=== PATIENT | female | born 1965 | race Caucasian/White ===

== ENCOUNTER → 2017-06-09 | Outpatient (CLI) | payer BC, OTHER ==
--- NOTE | 2017-06-09 15:54 | XR ---
EXAMINATION TYPE: XR chest 2V DATE OF EXAM: 06/09/2017 COMPARISON: 12/13/12 HISTORY: Chest pain TECHNIQUE: Frontal and lateral views of the chest are obtained. FINDINGS: There is no focal air space opacity. No evidence for pneumothorax. No pleural effusion. The cardiac silhouette size is within normal limits. The osseous structures are grossly intact. IMPRESSION: 1. No acute cardiopulmonary process.
== END | disposition home or self-care (01) ==
LOC: RADXRMAIN 15:33
PROVIDERS: ATTEND Family Medicine
DX: J98.01 Acute bronchospasm (principal)
CPT/HCPCS: 71020

== ENCOUNTER → 2017-11-21 | Outpatient (CLI) | payer BC | END | disposition home or self-care (01) | LOC: CPPFTMAIN 11:57 | PROVIDERS: ATTEND Family Medicine | DX: J45.909 Unspecified asthma, uncomplicated (principal) | CPT/HCPCS: 94010; 94060; 94726; 94727 ==

== ENCOUNTER → 2018-02-27 | Outpatient (CLI) | payer OTHER ==
--- NOTE | 2018-02-28 13:20 | ECHOF ---
Referral Reason:I42.2 hypertrophic cardiomyopathy MEASUREMENTS -------- HEIGHT: 162.6 cm WEIGHT: 79.4 kg BP: RVIDd: 2.6 cm (< 3.3) IVSd: 1.1 cm (0.6 - 1.1) LVIDd: 3.7 cm (3.9 - 5.3) LVPWd: 0.9 cm (0.6 - 1.1) IVSs: 1.2 cm LVIDs: 2.8 cm LVPWs: 1.2 cm LA Diam: 2.6 cm (2.7 - 3.8) LAESV Index (A-L): 28.18 ml/m Ao Diam: 2.6 cm (2.0 - 3.7) AV Cusp: 1.7 cm (1.5 - 2.6) LA Diam: 3.4 cm (2.7 - 3.8) MV EXCURSION: 14.577 mm (> 18.000) MV EF SLOPE: 51 mm/s (70 - 150) EPSS: 0.3 cm MV E Esau: 0.69 m/s MV DecT: 133 ms MV A Esau: 0.64 m/s MV E/A Ratio: 1.08 RAP: 5.00 mmHg RVSP: 13.38 mmHg FINDINGS -------- Sinus rhythm. This was a technically good study. LV size, wall thickness and systolic function are normal, with an EF greater than 55%. The left shanta tricular size is normal. The right ventricle is normal in size. The left atrial size is normal. The right atrial size is normal. The aortic valve is trileaflet, and appears structurally normal. No aortic stenosis or regurgitation. The mitral valve is normal. Mild mitral regurgitation is present. Mild tricuspid regurgitation present. There is no evidence of pulmonary hypertension. The right v entricular systolic pressure, as measured by Doppler, is 13.38mmHg. There is no pulmonic regurgitation present. The aortic root size is normal. There is no pericardial effusion. CONCLUSIONS -------- 1. Sinus rhythm. 2. LV size, wall thickness and systolic function are normal, with an EF greater than 55%. 3. The left ventricular size is normal. 4. The left atrial size is normal. 5. The right atrial size is normal. 6. The aortic valve is trileaflet, and appears structurally normal. No aortic stenosis or regurgitati on. 7. Mild mitral regurgitation is present. 8. Mild tricuspid regurgitation present. 9. There is no evidence of pulmonary hypertension. 10. There is no pulmonic regurgitation present. 11. The aortic root size is normal. 12. There is no pericardial effusion. FOREST MANAGEMENT PROFESSOR: Queta Louise RDCS
== END | disposition home or self-care (01) ==
LOC: RADECHMAIN 12:55
PROVIDERS: ATTEND Family Medicine
DX: I08.1 Rheumatic disorders of both mitral and tricuspid valves (principal)
CPT/HCPCS: 93306

== ENCOUNTER → 2019-08-12 | Outpatient (CLI) | payer BC ==
--- NOTE | 2019-08-14 10:48 | MM ---
Reason for exam: screening (asymptomatic). Last mammogram was performed 3 years and 7 months ago. History: Patient is postmenopausal and has history of high-risk lesion on a previous biopsy at age 32. Excisional biopsy of the right breast, 1997. Excisional biopsy of the right breast, 1995. High risk excisional biopsy of the right breast, 1985. Physical Findings: A clinical breast exam by your physician is recommended on an annual basis and results should be correlated with mammographic findings. MG 3D Screening Mammo W/Cad Bilateral CC and MLO view(s) were taken. Prior study comparison: January 07, 2016, bilateral MG 3d screening mammo w/cad. There are scattered fibroglandular densities. No significant changes when compared with prior studies. ASSESSMENT: Negative, BI-RAD 1 RECOMMENDATION: Routine screening mammogram of both breasts in 1 year.
== END | disposition home or self-care (01) ==
LOC: RADMAMWWP 16:37
PROVIDERS: ATTEND Obstetrics & Gynecology
DX: Z12.31 Encounter for screening mammogram for malignant neoplasm of breast (principal)
CPT/HCPCS: 77063; 77067

== ENCOUNTER → 2020-04-16 | Outpatient (CLI) | payer BC ==
--- NOTE | 2020-04-16 16:03 | CT ---
EXAMINATION TYPE: CT angio chest DATE OF EXAM: 04/16/2020 COMPARISON: Chest CT March 22, 2013 HISTORY: Chest pain. PT having difficulty taking in deep breath. CT DLP: 308.90 mGycm. Automated Exposure Control for Dose Reduction was Utilized. CONTRAST: CTA scan of the thorax is performed with IV Contrast, patient injected with 100 mL of Isovue 370, pul monary embolism protocol. MIP Images are created on CT scanner and reviewed. FINDINGS: LUNGS: Focal right midlung linear scarring anteriorly axial image 74 redemonstrated. No new suspiciou s focal consolidation. No pleural effusion or pneumothorax. No new suspicious nodules or masses. MEDIASTINUM: There is suboptimal bolus with heterogeneity and most dense contrast seen in SVC, near e qual contrast in left heart system and aorta, no central saddle pulmonary embolism, smaller segmental and subsegmental PE not entirely excluded on this study. No thoracic aortic aneurysm or dissection. There are no greater than 1 cm hilar or mediastinal lymph nodes. No cardiomegaly or pericardial ef fusion is seen. OTHER: Cholecystectomy clips are redemonstrated. Mild to moderate multilevel spurring in the thoracic spine IMPRESSION: 1. Suboptimal study, no central acute pulmonary embolism, cannot exclude smaller segmental or subsegm ental acute PE on this study. 2. No suspicious new acute pulmonary process.
== END | disposition home or self-care (01) ==
LOC: RADCTMAIN 14:56
PROVIDERS: ATTEND Family Medicine
DX: I26.99 Other pulmonary embolism without acute cor pulmonale (principal)
CPT/HCPCS: 71275; Q9967

== ENCOUNTER → 2021-04-16 | Outpatient (CLI) | payer BC ==
--- NOTE | 2021-04-20 11:15 | MM ---
Reason for exam: screening (asymptomatic). Last mammogram was performed 1 year and 8 months ago. History: Patient is postmenopausal and has history of high-risk lesion on a previous biopsy at age 32. Excisional biopsy of the right breast, 1997. Excisional biopsy of the right breast, 1995. High risk excisional biopsy of the right breast, 1985. Physical Findings: A clinical breast exam by your physician is recommended on an annual basis and results should be correlated with mammographic findings. MG 3D Screening Mammo W/Cad Bilateral CC and MLO view(s) were taken. XCCL view(s) were taken of the right breast. Prior study comparison: August 12, 2019, bilateral MG 3d screening mammo w/cad. January 07, 2016, bilateral MG 3d screening mammo w/cad. There are scattered fibroglandular densities. No significant changes when compared with prior studies. ASSESSMENT: Benign, BI-RAD 2 RECOMMENDATION: Routine screening mammogram of both breasts in 1 year.
== END | disposition home or self-care (01) ==
LOC: RADMAMWWP 10:15
PROVIDERS: ATTEND Obstetrics & Gynecology
DX: Z12.31 Encounter for screening mammogram for malignant neoplasm of breast (principal); Z78.0 Asymptomatic menopausal state
CPT/HCPCS: 77063; 77067

== ENCOUNTER → 2021-06-11 | Outpatient (CLI) | payer BC ==
--- NOTE | 2021-06-11 16:52 | US ---
EXAMINATION TYPE: US extremity nonvasc mass RT DATE OF EXAM: 06/11/2021 COMPARISON: NONE CLINICAL HISTORY: R22.41 DISTAL SWELLING ANTERIOR. Patient states lump on anterior lower thigh for th e past 8 years with tenderness with touch Palpable area scanned, unable to feel lump/ mass, no mass seen in area of concern. IMPRESSION: No distinct abnormality appreciated.
== END | disposition home or self-care (01) ==
LOC: RADUSWWP 15:38
PROVIDERS: ATTEND Family Medicine
DX: R22.41 Localized swelling, mass and lump, right lower limb (principal)

== ENCOUNTER → 2022-12-13 | Outpatient (CLI) | payer BC ==
--- NOTE | 2022-12-14 12:27 | MM ---
Reason for Exam: Screening (asymptomatic). Last mammogram was performed 1 year(s) and 8 month(s) ago. Patient History: Menarche at age 11. First Full-Term at age 29. Late child-bearing (after 29). Postmenopausal. Patient has history of breast feeding. 1985, High risk Excisional Biopsy on the right side. 1995, Excisional Biopsy on the Right side. 1997, Excisional Biopsy on the Right side. Risk Values: Court 5 year model risk: 2.8%. NCI Lifetime model risk: 15.3%. Prior Study Comparison: 01/07/2016 Bilateral Screening Mammogram, [facility]. 08/12/2019 Bilateral Screening Mammogram, [facility]. 04/16/2021 Bilateral Screening Mammogram, [facility]. Tissue Density: There are scattered fibroglandular densities. Findings: Analyzed By CAD. Stable asymmetric prominent tissue upper aspect left breast from prior mammograms. Benign-appearing bilateral axillary lymph nodes are redemonstrated. There is no suspicious group of microcalcifications or new suspicious mass in either breast. Overall Assessment: Negative, BI-RAD 1 Management: Screening Mammogram of both breasts in 1 year. . Patient should continue monthly self-breast exams. A clinical breast exam by your physician is recommended on an annual basis. This exam should not preclude additional follow-up of suspicious palpable abnormalities. Note on Court scores and lifetime risk: 1. A Court score greater than 3% is considered moderate risk. If this is the case, consider specialist referral to assess eligibility for a risk reducing agent. 2. If overall lifetime risk for the development of breast cancer is 20% or higher, the patient may qualify for future screening with alternating mammogram and breast MRI. Electronically signed and approved by: Pelon Michel M.D.
== END | disposition home or self-care (01) ==
LOC: RADMAMWWP 07:55
PROVIDERS: ATTEND Obstetrics & Gynecology
DX: Z12.31 Encounter for screening mammogram for malignant neoplasm of breast (principal); Z78.0 Asymptomatic menopausal state
CPT/HCPCS: 77063; 77067

== ENCOUNTER → 2023-05-11 | Outpatient (CLI) | payer BC ==
--- NOTE | 2023-05-11 13:10 | CA ---
Exercise Stress Test Report Name: Ely Joseph Exam Date: 05/11/2023 09:50 Exam Location: [facility] Stress Ht (in): 64 Wt (lb): 160 BSA: 1.78 Ordering Phys: Parker Otero MD Referring Phys: PARKER OTERO,, Technologist: Reid Loya Age: 57 Gender: F : 1965 Procedure CPT: Indications: R07.9 CHEST PAIN, UNSPECIFIED R06.00 DYSPNEA ICD-10 Codes: Patient History: CP, JB, NUMBNESS FACE/NECK, HTN, CHOL, FAMILY HX, Medications: HYDROCHLOROTHIAZIDE, ASPIRIN, MULTIVITAMIN, ROSUVASTATIN Meds past 24 hrs: Pretest Chest Pain: STRESS TEST Feng Protocol Exercise Duration (min:sec): 10:[address] Depressions (mm): Angina Score: Reyes Score: Resting HR (bpm): 63 Peak HR (bpm): 166 Resting BP (mmHg): 126 / 84 Peak BP (mmHg): 202 / 85 MPHR: 162 Target HR: 138 % MPHR: 102 METS: 12.1 Total Dose: Peak Dose: Atropine: Double Product: 89621 BP Response: Stress Termination: Reached target heart rate Stress Symptoms: No chest pain or symptoms Stress Summary: The patient's target heart rate was achieved ECG ANALYSIS Resting ECG: Sinus rhythm. Normal conduction. No arrhythmias. Nonspecific ST-T abnormality. Stress ECG: Equivocal. No arrhythmias. Nonspecific ST-T abnormality. CONCLUSIONS Good exercise tolerance Borderline positive electrocardiographic stress testing with half millimeter upsloping ST segment depression Nuclear images will be reported separately Dr. Tomas Villanueva MD (Electronically Signed) Final Date: 11 May 2023 13:09
== END | disposition home or self-care (01) ==
LOC: RADNMMAIN 08:08
PROVIDERS: ATTEND Family Medicine
DX: R07.9 Chest pain, unspecified (principal); R06.00 Dyspnea, unspecified
CPT/HCPCS: 93017; 78452; A9500

== ENCOUNTER → 2023-07-06 | Outpatient (CLI) | payer BC ==
--- NOTE | 2023-07-06 16:41 | CT ---
EXAMINATION TYPE: CT chest w con DATE OF EXAM: 07/06/2023 COMPARISON: CTA chest dated 04/16/2020 HISTORY: Solitary pulmonary nodule Automated exposure control for dose reduction was used. TECHNIQUE: CT scan of the chest is performed following uneventful administration nonionic IV contrast. FINDINGS: LUNGS: The lungs are grossly clear, there is no concerning parenchymal mass or nodule identified. T here is no pleural effusion or pneumothorax seen. The tracheobronchial tree is patent. MEDIASTINUM: There are no greater than 1 cm hilar or mediastinal lymph nodes. No pericardial effusi on is seen. OTHER: No additional significant abnormality is seen. IMPRESSION: 1. No acute cardiopulmonary disease. 2. No suspicious lung mass or nodule. Follow-up recommendations for incidental pulmonary nodules are per [employer] or [employer].
--- NOTE | 2023-07-07 12:24 | US ---
EXAMINATION TYPE: US thyroid st tissue head/neck DATE OF EXAM: 07/06/2023 COMPARISON: NONE CLINICAL INDICATION: Female, 57 years old with history of R91.1 SOLITARY PULMONARY NODULE,R94.6; Abno rmal labs. Not on thyroid meds. GLAND SIZE: Right Lobe: 4.9 x 1.6 x 1.5 cm Overall Parenchyma: heterogenous Left Lobe: 4.3 x 1.5 x 1.1 cm Overall Parenchyma: heterogenous Isthmus Thickness: 0.4 cm NODULES RIGHT: # of nodules measured on right: 0 LEFT: # of nodules measured on left: 2 1. 0.7 X 0.5 x 0.4 cm, mid mid, solid or almost completely solid, hypoechoic TR 4 nodule, which is wider than tall, with smooth margins, without echogenic foci. Prior size: No prior 2. 0.6 X 0.6 x 0.5 cm, lower medial, mixed cystic and solid, hypoechoic TR 4 nodule, which is wider than tall, with smooth margins, without echogenic foci. Prior size: No prior ISTHMUS: # of nodules measured in the isthmus: 0 Bilateral neck scanned, no evidence of lymphadenopathy. IMPRESSION: A couple TR4 nodules in the left lobe measuring 7 mm and 6 m. 2017 ACR TI-RADS LEVEL: TR-RADS 4 - Moderately Suspicious: Follow if > 1 cm, FNA if > 1.5 cm *Highest TI-RADS level nodule reported
== END | disposition home or self-care (01) ==
LOC: RADCTMAIN 15:00
PROVIDERS: ATTEND Family Medicine
DX: E04.2 Nontoxic multinodular goiter (principal); R91.1 Solitary pulmonary nodule; R94.6 Abnormal results of thyroid function studies
CPT/HCPCS: 76536; 71260; Q9967

== ENCOUNTER 2023-12-29 00:18 | Emergency (ER) | payer BC ==
[2023-12-29 00:23] VITALS: RESP 18; TEMP 98.7
--- NOTE | 2023-12-29 01:08 | ED ---
General Adult HPI - General Chief complaint: Chest Pain Stated complaint: chest pain Time Seen by Provider: 12/29/23 00:27 Source: patient Mode of arrival: ambulatory Limitations: no limitations - History of Present Illness Initial comments: Dictation was produced using [employer] dictation software. please excuse any grammatical, word or spelling errors. Chief Complaint: 58-year-old female presents to the ER for chest pain History of Present Illness: Patient is a 58-year-old female presents emergency department for chest pain. Patient denies any history of chest pain she has history of high cholesterol and hypertension. Patient states that for the last couple hours she has been having sharp chest pain that radiates to her left lateral chest. She states that it feels worse whenever she twists and moves and takes a deep breath. She reports extensive family history of cardiac disease. Patient states that the pain is intermittent. not associated with diaphoresis or nausea. The ROS documented in this emergency department record has been reviewed and confirmed by me. Those systems with pertinent positive or negative responses have been documented in the HPI. All other systems are other negative and/or noncontributory. - Related Data Allergies Allergy/AdvReac Type Severity Reaction Status Date / Time Sulfa (Sulfonamide Allergy Rash/Hives Verified 12/29/23 00:23 Antibiotics) Review of Systems ROS Statement: Those systems with pertinent positive or pertinent negative responses have been documented in the HPI. ROS Other: All systems not noted in ROS Statement are negative. Past Medical History Past Medical History: Hypertension History of Any Multi-Drug Resistant Organisms: None Reported Past Surgical History: No Surgical Hx Reported Past Psychological History: No Psychological Hx Reported Smoking Status: Never smoker Past Alcohol Use History: Occasional Past Drug Use History: None Reported General Exam - General Exam Comments Initial Comments: PHYSICAL EXAM: General Impression: Alert and oriented x3, not in acute distress HEENT: Normocephalic atraumatic, extra-ocular movements intact, pupils equal and reactive to light bilaterally, mucous membranes moist. Cardiovascular: Heart regular rate and rhythm Chest: Able to complete full sentences, no retractions, no tachypnea Abdomen: abdomen soft, non-tender, non-distended, no organomegaly Musculoskeletal: Pulses present and equal in all extremities, no peripheral edema Motor: no focal deficits noted Neurological: CN II-XII grossly intact, no focal motor or sensory deficits noted Skin: Intact with no visualized rashes Psych: Normal affect and mood Limitations: no limitations Course Vital Signs 12/29/23 12/29/23 12/29/23 00:20 01:00 03:00 Temperature 98.7 F Pulse Rate 87 75 86 Respiratory 18 18 18 Rate Blood Pressure 128/79 114/79 112/73 O2 Sat by Pulse 100 100 100 Oximetry 12/29/23 04:00 Temperature Pulse Rate 60 Respiratory 18 Rate Blood Pressure 110/64 O2 Sat by Pulse 95 Oximetry EKG Findings - EKG Comments: EKG Findings:: My EKG interpretation: Ventricular rate 97, sinus rhythm,. Well 201, QRS 90, QTc 420. No MN prolongation, no QTC prolongation. ST depressions in inferior leads and lateral leads. Repeat EKG performed approximately 15 minutes later shows improved ST depressions. Medical Decision Making - Medical Decision Making Was pt. sent in by a medical professional or institution (, PA, TONGUER, urgent care, hospital, or longterm...) When possible be specific @ -No Did you speak to anyone other than the patient for history (EMS, parent, family, police, friend...)? What history was obtained from this source @ -No Did you review nursing and triage notes (agree or disagree)? Why? @ -I reviewed and agree with nursing and triage notes Were old charts reviewed (outside hosp., previous admission, EMS record, old EKG, old radiological studies, urgent care reports/EKG's, longterm records)? Report findings @ -No old charts were reviewed Differential Diagnosis (chest pain, altered mental status, abdominal pain women, abdominal pain men, vaginal bleeding, musculoskeletal, weakness, fever, dyspnea, syncope, headache, dizziness, GI bleed, back pain, seizure, CVA, palpatations, mental health)? @ -Differential Chest Pain: Stable Angina, Unstable Angina, STEMI, NSTEMI Aortic Dissection, Pneumothorax, Musculoskeletal, Esophageal Spasm GERD, Cholecystitis, Pancreatitis, Zoster, this is not meant to be an all-inclusive list. EKG interpreted by me (3pts min.). @ -See above X-rays interpreted by me (1pt min.). @ -Chest x-ray is nonacute CT interpreted by me (1pt min.). @ -None done U/S interpreted by me (1pt. min.). @ -None done What testing was considered but not performed or refused? (CT, X-rays, U/S, labs)? Why? @ -None What meds were considered but not given or refused? Why? @ -None Did you discuss the management of the patient with other professionals (professionals i.e. , PA, TONGUER, lab, RT, psych nurse, social psychologist, air pollution control engineer, teacher, community chest officer, family independence case manager)? Give summary @ -No Was smoking cessation discussed for >3mins.? @ -No Was critical care preformed (if so, how long)? @ -No Were there social determinants of health that impacted care today? How? (Homelessness, low income, unemployed, alcoholism, drug addiction, transportation, low edu. Level, literacy, decrease access to med. care, half-way, rehab)? @ -No Was there de-escalation of care discussed even if they declined (Discuss DNR or withdrawal of care, Hospice)? DNR status @ -No What co-morbidities impacted this encounter? (DM, HTN, Smoking, COPD, CAD, Cancer, CVA, ARF, Chemo, Hep., AIDS, mental health diagnosis, sleep apnea, morbid obesity)? @ -None Was patient admitted / discharged? Hospital course, mention meds given and route, prescriptions, significant lab abnormalities, going to OR and other pertinent info. @ -58-year-old female presents to the emergency department with atypical chest pain typical features. She does have some family history and some risk factors and hypertension high cholesterol. Vital signs upon arrival are within acceptable limits. Laboratory evaluation obtained. Potassium is 2.4. Patient given supplemental potassium. Serial troponins are negative. Recommended observation admission for concerns of acute coronary syndrome. Patient would pr efer to be discharged if her second troponin is negative. She is made aware that there are some findings of possible ischemia seen on her EKG. Given aspirin. She was given nitroglycerin with no improvement of her symptoms.BMP shows potassium of 2.7. Patient was notified that she had abnormal EKG findings on top of that chart review was performed showing that patient had borderline positive stress test last year in July. More she had hypokalemia. She is told that she is considered to be significantly high risk given her family history, EKG findings despite normal serial troponins and atypical nature of her description she was notified that she has a heart score of 4 which is considered high and recommendation is for observation admission. Patient refused prefer to be discharged. Patient does not feel that her symptoms are indicative of ACS given that she does not have pressure that radiates to the shoulder jaw or down the extremity associated diaphoresis or nausea. Patient understands gravity of her decision of wanting discharge. She is highly encouraged to return to the emergency department if she has any worsening symptoms. Undiagnosed new problem with uncertain prognosis? @ -No Drug Therapy requiring intensive monitoring for toxicity (Heparin, Nitro, Insulin, Cardizem)? @ -No Were any procedures done? @ -No Diagnosis/symptom? Acute, or Chronic, or Acute on Chronic? Uncomplicated (without systemic symptoms) or Complicated (systemic symptoms)? @ -Atypical chest pain, high heart score, hypokalemia Side effects of treatment? @ -No Exacerbation, Progression, or Severe Exacerbation? @ -No Poses a threat to life or bodily function? How? (Chest pain, [place], [place], pneumonia, PE, COPD, DKA, ARF, appy, cholecystitis, CVA, Diverticulitis, Homicidal, Suicidal, threat to staff... and all critical care pts) @ -yes - Lab Data Result diagrams: 12/29/23 01:35 12/29/23 05:00 Lab Results 12/29/23 12/29/23 12/29/23 Range/Units 01:35 01:35 01:35 WBC 8.0 (3.8-10.6) k/uL RBC 4.79 (3.80-5.40) m/uL Hgb 13.8 (11.4-16.0) gm/dL Hct 41.2 (34.0-46.0) % MCV 85.9 (80.0-100.0) fL MCH 28.8 (25.0-35.0) pg MCHC 33.6 (31.0-37.0) g/dL RDW 12.6 (11.5-15.5) % Plt Count 221 (150-450) k/uL MPV 7.7 Neutrophils % 61 % Lymphocytes % 31 % Monocytes % 6 % Eosinophils % 1 % Basophils % 1 % Neutrophils # 4.8 (1.3-7.7) k/uL Lymphocytes # 2.4 (1.0-4.8) k/uL Monocytes # 0.5 (0-1.0) k/uL Eosinophils # 0.1 (0-0.7) k/uL Basophils # 0.1 (0-0.2) k/uL PT 10.8 (10.0-12.5) sec INR 1.0 (<1.2) APTT 25.3 (22.0-30.0) sec Sodium 136 L (137-145) mmol/L Potassium 2.4 L* (3.5-5.1) mmol/L Chloride 100 (98-107) mmol/L Carbon Dioxide 26 (22-30) mmol/L Anion Gap 10 mmol/L BUN 16 (7-17) mg/dL Creatinine 0.59 (0.52-1.04) mg/dL Est GFR (CKD-EPI)AfAm >90 (>60 ml/min/1.73 sqM) Est GFR (CKD-EPI)NonAf >90 (>60 ml/min/1.73 sqM) Glucose 114 H (74-99) mg/dL Calcium 9.4 (8.4-10.2) mg/dL Magnesium 1.8 (1.6-2.3) mg/dL Total Bilirubin 1.2 (0.2-1.3) mg/dL AST 28 (14-36) U/L ALT 32 (4-34) U/L Alkaline Phosphatase 105 (38-126) U/L Troponin I (0.000-0.034) ng/mL Total Protein 6.4 (6.3-8.2) g/dL Albumin 4.4 (3.5-5.0) g/dL 12/29/23 12/29/23 12/29/23 Range/Units 01:35 05:00 05:00 WBC (3.8-10.6) k/uL RBC (3.80-5.40) m/uL Hgb (11.4-16.0) gm/dL Hct (34.0-46.0) % MCV (80.0-100.0) fL MCH (25.0-35.0) pg MCHC (31.0-37.0) g/dL RDW (11.5-15.5) % Plt Count (150-450) k/uL MPV Neutrophils % % Lymphocytes % % Monocytes % % Eosinophils % % Basophils % % Neutrophils # (1.3-7.7) k/uL Lymphocytes # (1.0-4.8) k/uL Monocytes # (0-1.0) k/uL Eosinophils # (0-0.7) k/uL Basophils # (0-0.2) k/uL PT (10.0-12.5) sec INR (<1.2) APTT (22.0-30.0) sec Sodium 138 (137-145) mmol/L Potassium 2.7 L* (3.5-5.1) mmol/L Chloride 100 (98-107) mmol/L Carbon Dioxide 29 (22-30) mmol/L Anion Gap 9 mmol/L BUN 14 (7-17) mg/dL Creatinine 0.55 (0.52-1.04) mg/dL Est GFR (CKD-EPI)AfAm >90 (>60 ml/min/1.73 sqM) Est GFR (CKD-EPI)NonAf >90 (>60 ml/min/1.73 sqM) Glucose 91 (74-99) mg/dL Calcium 9.7 (8.4-10.2) mg/dL Magnesium (1.6-2.3) mg/dL Total Bilirubin (0.2-1.3) mg/dL AST (14-36) U/L ALT (4-34) U/L Alkaline Phosphatase (38-126) U/L Troponin I <0.012 <0.012 (0.000-0.034) ng/mL Total Protein (6.3-8.2) g/dL Albumin (3.5-5.0) g/dL Disposition Clinical Impression: Chest pain, Hypokalemia Disposition: HOME SELF-CARE Condition: Fair Instructions (If sedation given, give patient instructions): Chest Pain (ED), Hypokalemia (ED) Additional Instructions: increase potassium intake of foods Is patient prescribed a controlled substance at d/c from ED?: No Referrals: Lavon Dos Santos MD [Primary Care Provider] - 1-2 days Time of Disposition: 06:11
[2023-12-29] MEDS: ASPIRIN 81 MG PO STA (01:37)
[2023-12-29] MEDS: NITROGLYCERIN SL TABS 0.4 MG TAB SUBLINGUAL STA (01:38)
[2023-12-29 01:41] LABS: Basophils # (A) 0.1 k/uL (0-0.2); Basophils % (A) 1 %; Eosinophils # (A) 0.1 k/uL (0-0.7); Eosinophils % (A) 1 %; HCT 41.2 % (34.0-46.0); HGB 13.8 gm/dL (11.4-16.0); Lymphocytes # (A) 2.4 k/uL (1.0-4.8); Lymphocytes % (A) 31 %; MCH 28.8 pg (25.0-35.0); MCHC 33.6 g/dL (31.0-37.0); MCV 85.9 fL (80.0-100.0); Mean Platelet Volume 7.7; Monocytes # (A) 0.5 k/uL (0-1.0); Monocytes % (A) 6 %; Neutrophils # (A) 4.8 k/uL (1.3-7.7); Neutrophils % (A) 61 %; Platelet Count 221 k/uL (150-450); RBC 4.79 m/uL (3.80-5.40); RDW 12.6 % (11.5-15.5)
[2023-12-29 01:50] LABS: Partial Thromboplastin Time 25.3 sec (22.0-30.0); Prothrombin Time 10.8 sec (10.0-12.5)
[2023-12-29 02:02] LABS: ALT 32 U/L (4-34); AST 28 U/L (14-36); African American GFR (CKD) >90 (>60 ml/min/1.73 sqM); Albumin 4.4 g/dL (3.5-5.0); Alkaline Phosphatase 105 U/L (38-126); Anion Gap 10 mmol/L; Blood Urea Nitrogen 16 mg/dL (7-17); Calcium 9.4 mg/dL (8.4-10.2); Carbon Dioxide 26 mmol/L (22-30); Chloride 100 mmol/L (98-107); Glucose 114 mg/dL (74-99); Magnesium 1.8 mg/dL (1.6-2.3); Non-African American GFR(CKD) >90 (>60 ml/min/1.73 sqM); Sodium 136 mmol/L (137-145); Total Bilirubin 1.2 mg/dL (0.2-1.3); Total Protein 6.4 g/dL (6.3-8.2)
[2023-12-29 02:31] LABS: Potassium 2.4 mmol/L (3.5-5.1)
[2023-12-29] MEDS: POTASSIUM CHLORIDE ER 20 MEQ TAB.ER PO STA ×2 (02:57→06:16)
--- NOTE | 2023-12-29 04:03 | XR ---
EXAM: XR Chest, 2 Views CLINICAL HISTORY: ITS.REASON XR Reason: Chest Pain TECHNIQUE: Frontal and lateral views of the chest. COMPARISON: Chest CT 07/06/2023. FINDINGS: Lungs: Unremarkable. No consolidation. Pleural space: Unremarkable. No pneumothorax. Heart: Unremarkable. No cardiomegaly. Mediastinum: Unremarkable. Normal mediastinal contour. Bones/joints: Unremarkable. No acute fracture. IMPRESSION: No pneumonia.
[2023-12-29] MEDS: POTASSIUM CHLORIDE 20 MEQ in WATER FOR INJECTION 1 100ML.BAG IVPB STA (04:27)
[2023-12-29 04:43] VITALS: PULSE 60
[2023-12-29 05:26] LABS: African American GFR (CKD) >90 (>60 ml/min/1.73 sqM); Anion Gap 9 mmol/L; Blood Urea Nitrogen 14 mg/dL (7-17); Calcium 9.7 mg/dL (8.4-10.2); Carbon Dioxide 29 mmol/L (22-30); Chloride 100 mmol/L (98-107); Glucose 91 mg/dL (74-99); Non-African American GFR(CKD) >90 (>60 ml/min/1.73 sqM); Sodium 138 mmol/L (137-145)
[2023-12-29 06:02] LABS: Potassium 2.7 mmol/L (3.5-5.1)
[2023-12-29 06:21] VITALS: BP 127/82
== END 2023-12-29 06:34 | disposition home or self-care (01) ==
LOC: EC 00:18
DX: R07.89 Other chest pain (principal); E87.6 Hypokalemia; Z88.2 Allergy status to sulfonamides
CPT/HCPCS: 99285; 96365; 96366; 36415; 93005; 80053; 80048; 83735; 84484; 85025; 85610; 85730; 71046; J3480